=== PATIENT | male | born 1985 | race Caucasian/White ===

== ENCOUNTER 2023-07-02 15:01 | Outpatient (CLI) | payer MEDICAID, SELFPAY ==
[2023-07-02 16:00] LABS: Basophils # 0.1 10^3/uL (0.0-0.1); Basophils % 0.9 %; Eosinophils # 0.1 10^3/uL (0.0-0.8); Eosinophils % 0.8 %; Hematocrit 47.4 % (37-53); Lymphocytes # 2.9 10^3/uL (0.8-4.8); Mean Corpuscular HGB Conc 33.8 g/dL (30-55); Mean Corpuscular Hemoglobin 30.2 pg (27-33); Mean Corpuscular Volume 89.4 fl (82-101); Mean Platelet Volume 10.9 fL (7.4-10.4); Monocytes # 0.7 10^3/uL (0.2-0.9); Monocytes % 9.5 %; Neutrophils % 51.5 %; Nucleated Red Blood Cells % 0 %; Platelet Count 264 10^3/cmm (157-399); Red Cell Distribution Width 11.7 % (12.1-15.1); White Blood Count 7.76 10^3/uL (3.29-11.43)
[2023-07-02 16:40] LABS: Erythrocyte Sedimentation Rate 1 mm/hr (0-10)
[2023-07-02 16:47] LABS: 25 Hydroxy Vitamin D 28 ng/mL (30-100); Alanine Aminotransferase 13 U/L (0-41); Albumin Level 4.6 g/dL (3.5-5.2); Alkaline Phosphatase 66 U/L (40-130); Anion Gap 13.9 (5-19); Aspartate Amino Transferase 12 U/L (0-40); Blood Urea Nitrogen 15 mg/dL (6-20); Calcium 9.2 mg/dL (8.5-10.5); Carbon Dioxide 29 mmol/L (22-29); Chloride 105 mmol/L (98-107); Globulin 2.5 g/dL (1.3-4.6); Glucose 84 mg/dL (65-115); Osmolality Calculated 298 mOsm/kg (285-295); Potassium 3.9 mmol/L (3.5-5.1); Sodium 144 mmol/L (136-145); Thyroid Stimulating Hormone 1.69 uIU/mL (0.27-4.20); Total Bilirubin 0.6 mg/dL (0.15-1.2); Total Protein 7.1 g/dL (6.6-8.7)
[2023-07-03 14:50] LABS: RPR w(Moniotor) w/REFL Titer NON-REACTIVE (NON-REACTIVE)
[2023-07-03 16:45] LABS: Anti-Nuclear Antibody Screen NEGATIVE (NEGATIVE)
== END 2023-07-02 15:02 | disposition home or self-care (01) ==
PROVIDERS: PCP Nurse Practitioner; Visit Provider Nurse Practitioner
DX: R53.83 Other fatigue (principal); R41.3 Other amnesia; G47.00 Insomnia, unspecified; F32.A Depression, unspecified
CPT/HCPCS: 36415; 80053; 82306; 84443; 85025; 85651; 86038; 86140; 86592; 87207

== ENCOUNTER 2023-07-08 09:57 | Emergency (ER) | payer MEDICAID, SELFPAY ==
--- NOTE | 2023-07-08 10:01 | ED.C_ITS ---
Documented by User: AB Rao 07/08/23 11:18 HPI - Psych General: Chief Complaint: Psychiatric Symptoms Stated Complaint: psych eval Time Seen by Provider: 07/08/23 10:01 Source: patient and family (mother) Mode of arrival: ambulatory Limitations: no limitations History of Present Illness: Patient is a 38-year-old male who presents to ED today along with his mother requesting a psychiatric evaluation. Patient admittedly has been suffering mentally ever since COVID. He feels like his depression is worsening. Mother provides much of the history at this time. Reportedly patient was living in [place] but had to recently move in with his mother here in [place] approximately 2 months ago. Mother states patient's mental health has starkly declined since she last saw him. She states he is delusional reporting multiple spider bites to his lower extremities and genitalia that are not present. He feels her house is infested with spiders. He has sought multiple medical evaluations for [facility] as well as other facilities for these bites that are not present. Mother states his affect is very flat. She states that patient has been seeing and conversing with spirits. 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 No family history of schizophrenia. MD complaint: altered mental status Onset (ago): week(s) Duration: constant History of same: No Associated psychiatric symptoms: depression, auditory hallucinations and visual hallucinations Associated symptoms: Reports auditory hallucinations, visual hallucinations, delusions and depression Treatments prior to arrival: none Review of Systems Const: Denies: fever(s) or chills Card: Denies: chest pain, palpitations, lightheadedness or syncope Resp: Denies: dyspnea GI: Denies: abdominal pain, nausea, vomiting or diarrhea Skin/Breast: Denies: rash Neuro: Denies: headache(s) Psych: Reports: depression, visual hallucinations and auditory hallucinations; Denies: panic attacks, hopelessness or irritability PFS ED PFSH: Family History Grandmother Cancer paternal- breast Diabetes paternal Hyperlipidemia Hypertension Family history of premature coronary artery disease Heart disease Maternal Great Grandmother Stroke vascular strokes Father Hyperlipidemia Hypertension Family/Other Thyroid disease Aunt Heart disease Aunt- AFib Mother Hypertension Grandfather Family history of premature coronary artery disease Maternal- stents and blockages. Stroke Great Grandfather- Vascular Strokes. Denies family history of Clotting disorder Chronic kidney disease (CKD) Bleeding disorder Physical Exam Const: COMMON NORMALS: no acute distress, patient oriented x3, alert and well nourished GENERAL APPEARANCE: cooperative and well kempt Resp: COMMON NORMALS: normal respiratory effort and clear to auscultation bilaterally AUSCULTATION: clear to auscultation bilaterally Cardio: COMMON NORMALS: regular rate and regular rhythm RATE: regular rate RHYTHM: regular rhythm Extremity: COMMON NORMALS: normal to inspection GENERAL: Yes normal exam except as noted Neuro: DANNY COMA SCALE: document GCS findings [place] coma scale eye opening: Spontaneous [place] coma scale verbal response: Orientated [place] coma scale motor response: Obey commands Danny coma scale total score: 15 COMMON NORMALS: patient oriented x3 SENSORIUM/ORIENTATION: Yes alert Psych: COMMON NORMALS: mental status grossly normal, Normal thought process present, cooperative, normal affect, activity/motor behavior normal, denies homicidal ideation and denies suicidal ideation APPEARANCE: Yes grossly normal and Yes well kempt ATTITUDE: Yes calm ACTIVITY/MOTOR BEHAVIOR: No psychomotor agitation and Yes Avoids eye contact (attititude/behavior) SPEECH: Yes slow MOOD & AFFECT: Yes Flat affect present THOUGHT PROCESS: Normal thought process present THOUGHT CONTENT: Yes delusions MEMORY/COGNITION: Yes memory grossly intact and Yes cognition grossly intact INSIGHT: Limited insight present (Psych) JUDGEMENT: Fair judgement present (Psych) Skin: NARRATIVE SKIN EXAM: there are no bug/spider bites located anywhere on patient's extremities or genitalia; he shows me areas of puncture bites and black spots that are not present Course 2 Consultations: Consultation #1: Dr. Lopez-agrees that patient does not meet criteria for 96 hour hold; stated we do not have a NPU bed available at this time; recommends either voluntary transfer or crisis center Vital Signs: Vital signs: Vital Signs Temperature 98.8 F 07/08/23 10:26 Pulse Rate 82 07/08/23 10:26 Respiratory Rate 15 07/08/23 10:26 Blood Pressure 145/91 07/08/23 10:26 Pulse Oximetry 99 07/08/23 10:26 Oxygen Delivery Me thod Room Air 07/08/23 10:26 MDM - Psych Medical Decision Making Patient here with his mother for psychiatric evaluation. On history and physical exam patient appears to be experiencing delusions related to bites. He shows me bites of puncture wounds and necrotic bites to his legs that are not present. He does have a history of depression. He is not suicidal or homicidal. Mother states patient has never harmed himself or anybody else. He is not creating any harm out of the delusions (i.e trying to burn the house down because of spiders) thus he is not an eminent danger to himself or other people at this time. I did consult with Dr. Lopez who agrees that patient does not meet criteria for a 96-hour hold. Unfortunately we do not have an NPU bed available at this time. Voluntary transfer was offered to patient but he declines. Recommend he go to [facility] and see what services they can help with. Discharge Plan Discharge Patient Disposition: Home Clinical Impression: Mental health-related complaint Condition: Stable Prescriptions: No Action zinc acetate 50 mg (zinc) Capsule 50 mg PO DAILY ginkgo biloba 40 mg Tablet 40 mg PO DAILY Rx Instructions: give with meal/snack Cortisone (hydrocortisone) 1 % Cream 1 applic TOPICAL QID PRN (Reason: BITES) Vitamin D3 25 mcg (1,000 unit) Tablet 25 mcg PO DAILY [place] 3 Fish Oil 684-1,200 mg Capsule,Delayed Release(Dr/Ec) 1 cap PO DAILY L-Carnitine 500 mg Capsule 500 mg PO DAILY Discharge Orders: Discharge ED (Routine); Ordered 07/08/23 Ordered By: Leta Lanier Referrals: Berenice Lopez FNP [Primary Care Provider] - Coding Level of Care Code ED Mud Cleaner Operator for Chg Fwd Documented by User: Abhay James DO 07/08/23 12:21 HPI - Psych General: Chief Complaint: Psychiatric Symptoms Stated Complaint: psych eval Time Seen by Provider: 07/08/23 10:01 PFS ED PFSH: Family History Grandmother Cancer paternal- breast Diabetes paternal Hyperlipidemia Hypertension Family history of premature coronary artery disease Heart disease Maternal Great Grandmother Stroke vascular strokes Father Hyperlipidemia Hypertension Family/Other Thyroid disease Aunt Heart disease Aunt- AFib Mother Hypertension Grandfather Family history of premature coronary artery disease Maternal- stents and blockages. Stroke Great Grandfather- Vascular Strokes. Denies family history of Clotting disorder Chronic kidney disease (CKD) Bleeding disorder Physical Exam Neuro: DANNY COMA SCALE: document GCS findings Danny coma scale total score: 15 Course Vital Signs: Vital signs: Vital Signs Temperature 98.8 F 07/08/23 10:26 Pulse Rate 82 07/08/23 10:26 Respiratory Rate 15 07/08/23 10:26 Blood Pressure 145/91 07/08/23 10:26 Pulse Oximetry 99 07/08/23 10:26 Oxygen Delivery Me thod Room Air 07/08/23 10:26 MDM - Psych Medical Decision Making Patient here with his mother for psychiatric evaluation. On history and physical exam patient appears to be experiencing delusions related to bites. He shows me bites of puncture wounds and necrotic bites to his legs that are not present. He does have a history of depression. He is not suicidal or homicidal. Mother states patient has never harmed himself or anybody else. He is not creating any harm out of the delusions (i.e trying to burn the house down because of spiders) thus he is not an eminent danger to himself or other people at this time. I did consult with Dr. Lopez who agrees that patient does not meet criteria for a 96-hour hold. Unfortunately we do not have an NPU bed available at this time. Voluntary transfer was offered to patient but he declines. Recommend he go to [facility] and see what services they can help with. Chart reviewed and patient discussed with midlevel. Agree with assessment and plan. Discharge Plan Discharge Patient Disposition: Home Clinical Impression: Mental health-related complaint Condition: Stable Prescriptions: No Action zinc acetate 50 mg (zinc) Capsule 50 mg PO DAILY ginkgo biloba 40 mg Tablet 40 mg PO DAILY Rx Instructions: give with meal/snack Cortisone (hydrocortisone) 1 % Cream 1 applic TOPICAL QID PRN (Reason: BITES) Vitamin D3 25 mcg (1,000 unit) Tablet 25 mcg PO DAILY [place] 3 Fish Oil 684-1,200 mg Capsule,Delayed Release(Dr/Ec) 1 cap PO DAILY L-Carnitine 500 mg Capsule 500 mg PO DAILY Discharge Orders: Discharge ED (Routine); Ordered 07/08/23 Ordered By: Leta Lanier Referrals: Berenice Lopez FNP [Primary Care Provider] - Coding Level of Care Code ED Mud Cleaner Operator for Rory Felipe
[2023-07-08 10:16] VITALS: BMI 19.2
[2023-07-08 10:26] VITALS: BP 145/91; PULSE 82; RESP 15; TEMP 37.1; O2SAT 99
== END 2023-07-08 11:25 | disposition home or self-care (01) ==
PROVIDERS: Emergency Provider Physician Assistant; PCP Nurse Practitioner
DX: F22 Delusional disorders (principal); F32.A Depression, unspecified
CPT/HCPCS: 99283

== ENCOUNTER 2024-07-06 18:10 | Emergency (ER) | payer MEDICAID, SELFPAY ==
[2024-07-06 18:18] VITALS: PULSE 105; RESP 20; TEMP 36.8; O2SAT 93
[2024-07-06 18:21] VITALS: BP 131/86
[2024-07-06] MEDS: ondansetron 2 mg/ML SDV 2 mL 4 MG IVP ×2 (18:31→21:16)
[2024-07-06] MEDS: sodium chloride 0.9% 1,000 ML 999 ML IV ×2 (18:31→19:40)
--- NOTE | 2024-07-06 18:39 | ED_ITS ---
HPI - Alcohol 2 General: Chief Complaint: Alcohol Stated Complaint: ETOH Time Seen by Provider: 07/06/24 18:12 Source: EMS Mode of arrival: EMS Limitations: other (Intoxicated) History of Present Illness: Patient is a 39-year-old male who is brought to the emergency department by ambulance, called by mother, due to acute intoxication onset today. Per EMS, patient had to empty pints of vodka present along with evidence of vomiting on scene, he has history of same and has been brought in for being intoxicated in the past. At this time he is appearing extremely intoxicated, with obvious odor of alcohol. He has evidence of vomit in his hair. Review of systems unobtainable due to his intoxication, however he is able to eventually state to me his name, and birthday. 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 Chronic alcohol use: Yes Previous visits for alcohol intoxication: Yes Recent trauma: No Related Data Home Medications Medication Instructions Recorded Confirmed cholecalciferol (vitamin D3) 25 25 mcg PO DAILY 07/08/23 07/01/24 mcg (1,000 unit) tablet (Vitamin D3) ginkgo biloba 40 mg tablet 40 mg PO DAILY 07/08/23 07/01/24 hydrocortisone 1 % topical cream 1 applic topical QID PRN BITES 07/08/23 07/01/24 (Cortisone (hydrocortisone)) levocarnitine 500 mg capsule 500 mg PO DAILY 07/08/23 07/01/24 (L-Carnitine) omega-3 fatty acids-fish oil 684 1 cap PO DAILY 07/08/23 07/01/24 mg-1,200 mg capsule,delayed release zinc acetate 50 mg (zinc) capsule 50 mg PO DAILY 07/08/23 07/01/24 Previous Rx's Medication Instructions Recorded famotidine 40 mg tablet (Pepcid) 40 mg PO DAILY #30 tabs 07/07/24 Allergies Allergy/AdvReac Type Severity Reaction Status Date / Time No Known Allergies Allergy Verified 07/01/24 13:18 Review of Systems 2 General: Reports: Other (Unobtainable due to intoxication) [facility] ED 2 PFSH: Family History Grandmother Cancer paternal- breast Diabetes paternal Hyperlipidemia Hypertension Family history of premature coronary artery disease Heart disease Maternal Great Grandmother Stroke vascular strokes Father Hyperlipidemia Hypertension Family/Other Thyroid disease Aunt Heart disease Aunt- AFib Mother Hypertension Grandfather Family history of premature coronary artery disease Maternal- stents and blockages. Stroke Great Grandfather- Vascular Strokes. Denies family history of Clotting disorder Chronic kidney disease (CKD) Bleeding disorder Social History Smoking and tobacco/nicotine status: tobacco/nicotine user, details unknown Physical Exam 2 Const: EXAM LIMITATIONS: other limitations (Intoxicated) GENERAL APPEARANCE: odor of alcohol detected ORIENTATION/CONSCIOUSNESS: Yes awake, Yes oriented to person, Yes oriented to place and Yes oriented to time HENMT: COMMON NORMALS: normocephalic and atraumatic HEAD & SCALP: n ormocephalic and atraumatic OTHER: Emesis in patient's hair Eye: COMMON NORMALS: Equal, round and reactive pupils present, EOMs intact bilaterally and conjunctivae normal CONJUNCTIVA: Yes conjunctivae normal P UPIL: Yes Equal, round and reactive pupils present Neck/C-Spine: COMMON NORMALS: full ROM and no meningeal signs Resp: COMMON NORMALS: normal respiratory effort, No retractions, No use of accessory muscles and clear to auscultation bilaterally AUSCULTATION: clear to auscultation bilaterally Cardio: COMMON NORMALS: regular rate and regular rhythm RATE: regular rate RHYTHM: regular rhythm GI: COMMON NORMALS: Normal to inspection, nondistended, normoactive bowel sounds present, Soft to palpation and non-tender PALPATION: Yes Soft to palpation Extremity: COMMON NORMALS: normal to inspection and full ROM Neuro: COMMON NORMALS: moves all extremities, no focal motor deficits and no sensory deficits noted SENSORIUM/ORIENTATION: Yes oriented to person, Yes oriented to place and Yes oriented to time MENINGEAL SIGNS: Yes no meningeal signs Psych: APPEARANCE: Yes disheveled Skin: COMMON NORMALS: no rashes or lesions noted GENERAL SKIN EXAM: no rashes or lesions noted Course 2 Vital Signs: Vital signs: Vital Signs Temperature 98.4 F 07/07/24 01:05 Pulse Rate 89 07/07/24 01:05 Respiratory Rate 18 07/07/24 01:05 Blood Pressure 160/88 07/07/24 01:05 Pulse Oximetry 97 07/07/24 01:05 Oxygen Delivery Me thod Room Air 07/06/24 21:33 [facility] - Alcohol Medical Decision Making Patient arrived by ambulance due to acute alcohol intoxication, mom called EMS. He arrived disoriented and clearly intoxicated, did not provide any useful history upon initial examination. No clinical signs or symptoms of aspiration at this time. He was started on fluids and basic labs obtained, EtOH noted to be 419 initially. After some time he was rechecked and was then noted to be alert and oriented x 3, and at that time denied any SI, HI, or other concerning psychological concerns. I did discuss with mom patient's arrival, and she wanted him admitted and I did explain to her at this time that he is denying any psychological concerns and that he simply would benefit from outpatient rehabilitation for his alcohol use. Mom does note he has a history of schizophrenia and has been skipping some of his meds. I discussed with the patient, he states that he just sometimes forgets and that he is trying to get a hold of his alcohol problem. I offered outpatient resources, he states he wants to figure it out on his own and has a therapist that he sees regularly and who he will talk to about it. At 1 point prior to discharge she did start vomiting coffee-ground emesis, or labs obtained to rule out upper GI bleed and CT did show signs of a probable esophagitis, and bleeding likely secondary to a Ahleigh-Villarreal tear from throwing up. There was no obvious perforated ulcer or any other concerning surgical findings on CT and we will treat for a gastritis/esophagitis. Radiologist did note his appendix to be prominent, patient was thoroughly examined for clinical signs of appendicitis and did not demonstrate any peritoneal findings or tenderness to palpation. His alcohol rechecked and noted to be 200, he is eventually discharged home with strict return precautions given. This patient's case thoroughly discussed with Dr. Lindsey who agrees with disposition. Lab Data 07/06/24 18:30 07/06/24 18:30 Radiology Impressions Abdomen/Pelvis CT 07/06/24 21:18 IMPRESSION: 1. Prominent fluid in the stomach and small bowel, please correlate for a gastroenteritis. 2. Appendix is prominent at 7.9 mm without surrounding fluid or inflammation, findings are not definitive for appendicitis by CT alone, please correlate clinically. 3. Small hiatal hernia. 4. Distal esophageal wall thickening, please correlate for esophagitis. 5. Left kidney cyst, negative for follow-up advised. 6. Hepatic steatosis. Laboratory Results WBC 11.02 10^3/uL (3.29-11.43) 07/06/24 18: RBC 5.93 10^6/uL (3.85-5.65) H 07/06/24 18:30 Hgb 17.40 g/dL (11.27-16.99) H 07/06/24 18:30 Hct 51.6 % (37-53) 07/06/24 18: MCV 87.0 fl (82-101) 07/06/24 18:30 MCH 29.3 pg (27-33) 07/06/24 18: MCHC 33.7 g/dL (30-55) 07/06/24 18: RDW 12.8 % (12.1-15.1) 07/06/24 18: Plt Count 219 10^3/cmm (157-399) 07/06/24 18: MPV 10.4 fL (7.4-10.4) 07/06/24 18:30 Neut % (Auto) 79.9 % 07/06/24 18:30 Lymph % (Auto) 16.6 % 07/06/24 18:30 [place] % (Auto) 2.4 % 07/06/24 18:30 Eos % (Auto) 0.2 % 07/06/24 18: Baso % (Auto) 0.5 % 07/06/24 18:30 Neut # (Auto) 8.81 10^3/uL (1.8-7.7) H 07/06/24 18:30 Lymph # (Auto) 1.8 10^3/uL (0.8-4.8) 07/06/24 18:30 [place] # (Auto) 0.3 10^3/uL (0.2-0.9) 07/06/24 18: Eos # (Auto) 0.0 10^3/uL (0.0-0.8) 07/06/24 18:30 Baso # (Auto) 0.1 10^3/uL (0.0-0.1) 07/06/24 18: Nucleated RBC % (auto) 0 % 07/06/24 18: Nucleated RBCs # 0.0 /100WBC 07/06/24 18:30 PT 13.40 SECONDS (12.1-14.9) 07/06/24 18:30 INR 0.99 (0.8-1.2) 07/06/24 18:30 APTT 27.0 SECONDS (23.9-36.7) 07/06/24 18:30 Sodium 142 mmol/L (136-145) 07/06/24 18:30 Potassium 3.6 mmol/L (3.5-5.1) 07/06/24 18:30 Chloride 96 mmol/L (98-107) L 07/06/24 18:30 Carbon Dioxide 14 mmol/L (22-29) L 07/06/24 18:30 Anion Gap 35.6 (5-19) H 07/06/24 18:30 BUN 24 mg/dL (6-20) H 07/06/24 18:30 Creatinine 0.7 mg/dL (0.7-1.2) 07/06/24 18:30 GFR Calculation 126.2 mL/min (90-130) 07/06/24 18:30 Glucose 105 mg/dL (65-115) 07/06/24 18:30 Calculated Osmolality 298 mOsm/kg (285-295) H 07/06/24 18:30 Calcium 8.1 mg/dL (8.5-10.5) L 07/06/24 18:30 Total Bilirubin 1.2 mg/dL (0.15-1.2) 07/06/24 18:30 AST 54 U/L (0-40) H 07/06/24 18:30 ALT 43 U/L (0-41) H 07/06/24 18:30 Alkaline Phosphatase 98 U/L (40-130) 07/06/24 18:30 C-Reactive Protein 3.0 mg/L (0.0-4.9) 07/06/24 18:30 Total Protein 7.0 g/dL (6.6-8.7) 07/06/24 18:30 Albumin 4.4 g/dL (3.5-5.2) 07/06/24 18:30 Globulin 2.6 g/dL (1.3-4.6) 07/06/24 18:30 Lipase 32 U/L (13-60) 07/06/24 18:30 Ethyl Alcohol 202 mg/dL (0-10) H 07/06/24 23:49 All radiology interpretation(s) finalized by discharge Discharge Plan Discharge Patient Disposition: Home Clinical Impression: Esophagitis Alcoholic intoxication Qualifiers: Complication of substance-induced condition: with unspecified complication Q ualified Code(s): F10.929 - Alcohol use, unspecified with intoxication, unspecified Condition: Stable Prescriptions: New Pepcid 40 mg tablet 40 mg PO DAILY Qty: 30 0RF No Action zinc acetate 50 mg (zinc) Capsule 50 mg PO DAILY ginkgo biloba 40 mg Tablet 40 mg PO DAILY Rx Instructions: give with meal/snack Cortisone (hydrocortisone) 1 % Cream 1 applic TOPICAL QID PRN (Reason: BITES) Vitamin D3 25 mcg (1,000 unit) Tablet 25 mcg PO DAILY [place] 3 Fish Oil 684-1,200 mg Capsule,Delayed Release(Dr/Ec) 1 cap PO DAILY L-Carnitine 500 mg Capsule 500 mg PO DAILY Discharge Orders: Discharge ED (Routine); Ordered 07/07/24 Ordered By: Hardeep Vences Referrals: Berenice Lopez FNP [Primary Care Provider] - Discharge Diet: As Directed Discharge Activity: Increase activity as tolerated Patient Instructions: Alcohol Intoxication (ED), Esophagitis (ED) Activity Restrictions/Additional Instructions: Pepcid as prescribed. Plenty of fluids. Please avoid drinking alcohol. Follow-up with your primary care provider and for any potential resources for outpatient alcohol rehabilitation. Return with any new or concerning symptoms. Coding Level of Care Code ED Branch Manager Trainee for Rory Felipe
[2024-07-06 18:46] LABS: Basophils # 0.1 10^3/uL (0.0-0.1); Basophils % 0.5 %; Eosinophils % 0.2 %; Hematocrit 51.6 % (37-53); Lymphocytes # 1.8 10^3/uL (0.8-4.8); Lymphocytes % 16.6 %; Mean Corpuscular HGB Conc 33.7 g/dL (30-55); Mean Corpuscular Hemoglobin 29.3 pg (27-33); Mean Platelet Volume 10.4 fL (7.4-10.4); Monocytes # 0.3 10^3/uL (0.2-0.9); Monocytes % 2.4 %; Neutrophils # 8.81 10^3/uL (1.8-7.7); Neutrophils % 79.9 %; Nucleated Red Blood Cells % 0 %; Platelet Count 219 10^3/cmm (157-399); Red Blood Count 5.93 10^6/uL (3.85-5.65); Red Cell Distribution Width 12.8 % (12.1-15.1); White Blood Count 11.02 10^3/uL (3.29-11.43)
[2024-07-06 19:07] LABS: Alanine Aminotransferase 43 U/L (0-41); Albumin Level 4.4 g/dL (3.5-5.2); Alkaline Phosphatase 98 U/L (40-130); Anion Gap 35.6 (5-19); Aspartate Amino Transferase 54 U/L (0-40); Blood Urea Nitrogen 24 mg/dL (6-20); Calcium 8.1 mg/dL (8.5-10.5); Carbon Dioxide 14 mmol/L (22-29); Chloride 96 mmol/L (98-107); Globulin 2.6 g/dL (1.3-4.6); Glomerular Filtration Rate 126.2 mL/min (90-130); Glucose 105 mg/dL (65-115); Osmolality Calculated 298 mOsm/kg (285-295); Potassium 3.6 mmol/L (3.5-5.1); Sodium 142 mmol/L (136-145); Total Bilirubin 1.2 mg/dL (0.15-1.2)
[2024-07-06 19:19] LABS: Alcohol Level 419 mg/dL (0-10)
--- NOTE | 2024-07-06 21:18 | CTR_ITS ---
PROCEDURE INFORMATION: Exam: CT Abdomen And Pelvis With Contrast Exam date and time: 07/06/2024 10:04 PM Age: 39 years old Clinical indication: Vomiting; Additional info: Coffee ground emesis TECHNIQUE: Imaging protocol: Computed tomography of the abdomen and pelvis with contrast. Radiation optimization: All CT scans at this facility use at least one of these dose optimization techniques: automated exposure control; mA and/or kV adjustment per patient size (includes targeted exams where dose is matched to clinical indication); or iterative reconstruction. Contrast material: OMNI 350; Contrast volume: 100 ml; Contrast route: INTRAVENOUS (IV); COMPARISON: No relevant prior studies available. RADIATION DOSE METRICS: Total DLP (mGy-cm): 420.92 FINDINGS: Esophagus: Distal esophageal wall thickening, please correlate for esophagitis. Diaphragm: Small hiatal hernia. Liver: Hepatic steatosis. Gallbladder and biliary ducts: Normal. No calcified stones. No ductal dilation. Pancreas: Normal. No ductal dilation. Spleen: Normal. No splenomegaly. Adrenal glands: Normal. No mass. Kidneys and ureters: Left kidney cyst, negative for follow-up advised. Stomach and bowel: Prominent fluid in the stomach and small bowel, please correlate for a gastroenteritis. Appendix: Appendix is prominent at 7.9 mm without surrounding fluid or inflammation, findings are not definitive for appendicitis by CT alone, please correlate clinically. Intraperitoneal space: Unremarkable. No free air. No significant fluid collection. Vasculature: Unremarkable. No abdominal aortic aneurysm. Lymph nodes: Unremarkable. No enlarged lymph nodes. Urinary bladder: Unremarkable as visualized. Reproductive: Unremarkable as visualized. Bones/joints: Unremarkable. No acute fracture. Soft tissues: Unremarkable. CT/CT abdomen pelvis w con* [id number] IMPRESSION: 1. Prominent fluid in the stomach and small bowel, please correlate for a gastroenteritis. 2. Appendix is prominent at 7.9 mm without surrounding fluid or inflammation, findings are not definitive for appendicitis by CT alone, please correlate clinically. 3. Small hiatal hernia. 4. Distal esophageal wall thickening, please correlate for esophagitis. 5. Left kidney cyst, negative for follow-up advised. 6. Hepatic steatosis.
[2024-07-06 21:30] LABS: INR 0.99 (0.8-1.2)
[2024-07-06 21:33] VITALS: BP 147/83; PULSE 102; RESP 18; TEMP 36.8; O2SAT 95
[2024-07-06 21:34] LABS: Lipase 32 U/L (13-60)
--- NOTE | 2024-07-06 21:48 | ECG_ITS ---
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 Measurements Intervals [place] Rate: 93 P: 59 SC: 145 QRS: 50 QRSD: 86 T: 28 QT: 360 QTc: 448 Interpretive Statements SINUS RHYTHM No previous ECG available for comparison Electronically Signed On 07-07-2024 16:45:46 CDT by Neftali Oro M.D. [id number]
[2024-07-06] MEDS: iohexol 350 mg/mL 500 mL Btl (per mL) IV (22:09)
[2024-07-06] MEDS: nicotine 21 mg Patch 1 PATCH TRANSDERMA (22:44)
[2024-07-06] MEDS: famotidine 20 mg/2 mL INJ 40 MG IVP (23:50)
[2024-07-07 00:11] LABS: Alcohol Level 202 mg/dL (0-10)
[2024-07-07 01:05] VITALS: BP 160/88; PULSE 89; RESP 18; TEMP 36.9; O2SAT 97
--- NOTE | 2024-07-07 01:50 | PC.NURSE ---
Pt was A&Ox4 when he was being discharge to the waiting room to wait for his mother to come and pick him up. Pt stated he would call his mother for a ride. Pt's mother previously told the Charge nurse that she would not answer her phone before 0500 to pick the pt up. Pt is his own guardian and gave verbal understanding of his discharge instructions and was admit about calling his mother himself for a ride. RN stated she could set him up for a medicaid ride in the morning but the pt declined.
== END 2024-07-07 01:02 | disposition home or self-care (01) ==
PROVIDERS: Emergency Provider Physician Assistant; PCP Nurse Practitioner
DX: F10.929 Alcohol use, unspecified with intoxication, unspecified (principal); K20.90 Esophagitis, unspecified without bleeding; Z72.0 Tobacco use; Y90.7 Blood alcohol level of 200-239 mg/100 ml
CPT/HCPCS: 36415; 74177; 80053; 80307; 83690; 85025; 85610; 85730; 86140; 93005; 96361; 96374; 96375; 96376; 99285; J2405; J3490; J7030